=== PATIENT | male | born 2000 | race African-American/Black ===

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

== ENCOUNTER 2020-04-08 09:53 | Emergency (ER) | payer OTHER, MEDICAID ==
[2020-04-08 10:04] VITALS: BP 117/66
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
== END 2020-04-08 10:27 | disposition home or self-care (01) ==
LOC: ER 09:53
DX: S39.012A Strain of muscle, fascia and tendon of lower back, initial encounter (principal); V89.2XXA Person injured in unspecified motor-vehicle accident, traffic, initial encounter
CPT/HCPCS: 99283